=== PATIENT | female | born 1955 | race Two or more races ===

== ENCOUNTER 2020-08-06 22:25 | Inpatient (IN) | payer BC, OTHER ==
[~2020-08-06] VITALS: Ht 165.1 cm; Wt 70.4 kg
[2020-08-06 23:56] LABS: Basophils # (auto) 0.1 10 ^3/uL (0-0.2); Basophils % (auto) 0.8 % (0.0-2.0); Eosinophils # (auto) 0.4 10 ^3/uL (0-0.8); Hematocrit 41.3 % (36.0-46.0); Hemoglobin 14.2 g/dL (12.2-16.2); Lymphocytes # (auto) 2.1 10 ^3/uL (0.4-5.4); Lymphocytes % (auto) 17.4 % (10.0-50.0); Mean Corpuscular Hemoglobin 30.1 pg (28.0-32.0); Mean Corpuscular Hgb Conc. 34.3 g/dL (32.0-36.0); Mean Corpuscular Volume 87.7 fL (80.0-100.0); Monocytes # (auto) 0.8 10 ^3/uL (0-1.3); Monocytes % (auto) 6.8 % (0.0-12.0); Neutrophils # (auto) 8.8 10 ^3/uL (1.6-8.6); Nucleated Red Blood Cells % 0.1 %; Platelet Count (auto) 131 10^3/uL (140-450); Red Blood Cells 4.71 10^6/uL (4.0-5.20); Red Cell Distribution Width 13.1 % (11.8-14.3); White Blood Cell 12.2 10^3/uL (4.4-10.8)
[2020-08-07 00:08] LABS: Urine Bacteria FEW /hpf (None Seen); Urine Blood 2+ /uL (Negative); Urine Hyaline Cast FEW /lpf (0 - 2); Urine Mucus FEW (None Seen); Urine Specific Gravity 1.021 (1.001-1.035); Urine WBC 15 /hpf (0 - 5)
[2020-08-07 00:11] LABS: BUN/Creatinine Ratio 19.7; Calcium 8.9 mg/dL (8.5-10.1); Potassium 3.3 mmol/L (3.5-5.1)
[2020-08-07] MEDS ORDERED: metroNIDAZOLE 500MG/100ML 100 ML IV ONE (08:00)
[2020-08-07] MEDS ORDERED: cefTRIAXone 1GM/50ML D5W 50 ML IV ONE (08:00)
[2020-08-07] MEDS ORDERED: MORPHINE SULFATE 4 MG/ML SYR/VIAL IV ONE (08:00)
[2020-08-07] MEDS ORDERED: ONDANSETRON HCL 4 MG/2 ML VIAL IV ONE (08:00)
[2020-08-07] MEDS ORDERED: SODIUM CHLORIDE 0.9% 1,000 ML IV ONE ×3 (08:00→11:00)
[2020-08-07] MEDS ORDERED: POTASSIUM CHL 20MEQ/100ML 100 ML IV ONE ×2 (10:00→11:00)
[2020-08-07 10:35] LABS: Albumin 3.2 g/dL (3.4-5.0); Calcium 7.5 mg/dL (8.5-10.1); Potassium 3.2 mmol/L (3.5-5.1)
[2020-08-07 10:38] LABS: BUN/Creatinine Ratio 31.3; Bilirubin, Total 0.9 mg/dL (0.2-1.0); Total Protein 6.3 g/dL (6.4-8.2)
[2020-08-07] MEDS ORDERED: MORPHINE SULF INJ 2 MG/ML SYRINGE 1ML IV PRN (11:00)
[2020-08-07] MEDS ORDERED: NITROGLYCERIN 0.4 MG SL TAB SL PRN (11:00)
[2020-08-07 11:42] LABS: Basophils # (auto) 0.1 10 ^3/uL (0-0.2); Basophils % (auto) 0.8 % (0.0-2.0); Eosinophils # (auto) 0.3 10 ^3/uL (0-0.8); Eosinophils % (auto) 3.2 % (0.0-7.0); Hematocrit 34.7 % (36.0-46.0); Hemoglobin 12.1 g/dL (12.2-16.2); Lymphocytes # (auto) 2.5 10 ^3/uL (0.4-5.4); Lymphocytes % (auto) 22.9 % (10.0-50.0); Mean Corpuscular Hemoglobin 30.6 pg (28.0-32.0); Mean Corpuscular Hgb Conc. 34.8 g/dL (32.0-36.0); Monocytes # (auto) 0.9 10 ^3/uL (0-1.3); Monocytes % (auto) 7.9 % (0.0-12.0); Neutrophils # (auto) 7.1 10 ^3/uL (1.6-8.6); Neutrophils % (auto) 65.2 % (37.0-80.0); Nucleated Red Blood Cells % 0.1 %; Platelet Count (auto) 96 10^3/uL (140-450); Red Blood Cells 3.94 10^6/uL (4.0-5.20); Red Cell Distribution Width 13.4 % (11.8-14.3); White Blood Cell 10.8 10^3/uL (4.4-10.8)
[2020-08-07 12:04] LABS: INR 1.05 (0.9-1.15)
[2020-08-07] MEDS ORDERED: OMEP20TA PO (12:55)
[2020-08-07] MEDS ORDERED: ATOR20TA50 PO (12:57)
[2020-08-07] MEDS: levoFLOXacin 500MG 100 ML IV SCH (13:15)
[2020-08-07] MEDS: PANTOPRAZOLE 40 MG/10 ML VIAL INJ IV SCH (13:15)
[2020-08-07] MEDS ORDERED: LOSA100T25 PO (15:39)
[2020-08-07] MEDS ORDERED: FEXO-42 PO (15:39)
[2020-08-07] MEDS: hydrALAZINE HCL 20 MG/ML VL IV PRN (15:58)
[2020-08-07 16:00] VITALS: BP 152/89
[2020-08-07] MEDS: metroNIDAZOLE 500MG/100ML 100 ML IV SCH ×2 (16:00→21:32)
[2020-08-07] MEDS ORDERED: ACETAMINOPHEN 650 mg PER 20.3 mL UD PO PRN (16:15)
[2020-08-07] MEDS ORDERED: ONDANSETRON HCL 4 MG/2 ML VIAL IV PRN (16:15)
[2020-08-07] MEDS ORDERED: ACETAMINOPHEN 325 MG TAB PO PRN (16:30)
[2020-08-07 22:00] VITALS: BP 129/73
[2020-08-08 05:00] VITALS: BP 138/78
[2020-08-08] MEDS: metroNIDAZOLE 500MG/100ML 100 ML IV SCH (05:34)
[2020-08-08 06:41] LABS: Basophils # (auto) 0 10 ^3/uL (0-0.2); Basophils % (auto) 0.4 % (0.0-2.0); Eosinophils # (auto) 0.5 10 ^3/uL (0-0.8); Eosinophils % (auto) 6.4 % (0.0-7.0); Hematocrit 33.9 % (36.0-46.0); Hemoglobin 12.1 g/dL (12.2-16.2); Lymphocytes # (auto) 2.4 10 ^3/uL (0.4-5.4); Lymphocytes % (auto) 33.4 % (10.0-50.0); Mean Corpuscular Hemoglobin 31.2 pg (28.0-32.0); Mean Corpuscular Hgb Conc. 35.6 g/dL (32.0-36.0); Mean Corpuscular Volume 87.7 fL (80.0-100.0); Monocytes # (auto) 0.6 10 ^3/uL (0-1.3); Monocytes % (auto) 7.7 % (0.0-12.0); Neutrophils # (auto) 3.7 10 ^3/uL (1.6-8.6); Neutrophils % (auto) 52.1 % (37.0-80.0); Nucleated Red Blood Cells % 0.1 %; Platelet Count (auto) 80 10^3/uL (140-450); Red Blood Cells 3.87 10^6/uL (4.0-5.20); Red Cell Distribution Width 13.4 % (11.8-14.3); White Blood Cell 7.2 10^3/uL (4.4-10.8)
[2020-08-08 06:48] LABS: Calcium 7.7 mg/dL (8.5-10.1); Potassium 3.4 mmol/L (3.5-5.1)
[2020-08-08 06:51] LABS: BUN/Creatinine Ratio 20.8
[2020-08-08 07:51] VITALS: BP 148/71
[2020-08-08] MEDS ORDERED: LIDOCAINE VISCOUS 2% 15ML UD ONE (08:52)
[2020-08-08] MEDS ORDERED: diphenhdrAMINE HCL 50 MG/1 ML VL ONE (08:53)
[2020-08-08] MEDS ORDERED: fentaNYL CITRATE 100 MCG/2 ML VL ONE (08:53)
[2020-08-08] MEDS ORDERED: MIDAZOLAM HCL 5 MG/ML-1ML VIAL ONE (08:53)
[2020-08-08] MEDS: PANTOPRAZOLE 40 MG/10 ML VIAL INJ IV SCH (09:49)
[2020-08-08] MEDS: levoFLOXacin 500MG 100 ML IV SCH (09:49)
[2020-08-08] MEDS ORDERED: ENOXAPARIN SOD 40 MG/0.4 ML SYRINGE SC SCH (10:00)
[2020-08-08] MEDS ORDERED: GOLYTELY 4L KIT PO ONE (10:30)
[2020-08-08 12:00] VITALS: BP 160/88
[2020-08-08] MEDS: POTASSIUM CHL 20MEQ/100ML 100 ML IV SCH ×2 (12:00→13:16)
[2020-08-08] MEDS: hydrALAZINE HCL 20 MG/ML VL IV PRN (13:38)
[2020-08-08 16:00] VITALS: BP 134/75
[2020-08-08] MEDS ORDERED: POTASSIUM CHL 20 Meq TABLET PO ONE (16:00)
[2020-08-08 17:45] VITALS: BP 160/88
== END 2020-08-08 18:30 | disposition home or self-care (01) | DRG 392 ==
LOC: ER 22:30 → EDSEX 22:30 → TELE 08-07 10:51 → TELE-EAST 08-07 14:50
PROVIDERS: ADMIT Internal Medicine; ATTEND Internal Medicine
DX: K52.9 Noninfective gastroenteritis and colitis, unspecified (principal); Z20.822 Contact with and (suspected) exposure to COVID-19; E87.6 Hypokalemia; I10 Essential (primary) hypertension; K20.90 Esophagitis, unspecified without bleeding; E78.5 Hyperlipidemia, unspecified; F17.210 Nicotine dependence, cigarettes, uncomplicated; K76.0 Fatty (change of) liver, not elsewhere classified; K21.9 Gastro-esophageal reflux disease without esophagitis; Z90.49 Acquired absence of other specified parts of digestive tract
CPT/HCPCS: 36415; 74176; 76705; 78226; 80048; 80053; 81001; 85025; 85610; 86850; 86900; 86901; 87040; 87045; 87086; 87426; 87427; 93005; 96365; 96368; 96375; C9113; G0378; J0696; J1956; J2250; J2405; J3480; J3490

== ENCOUNTER 2022-08-05 19:45 | Emergency (ER) | payer BC ==
[~2022-08-05] VITALS: Ht 165.1 cm; Wt 70.5 kg
[~2022-08-05 19:45] MED LIST: ATOR20TA50 PO; FEXO-42 PO; LOSA100T25 PO; OMEP20TA PO
[2022-08-05 21:12] LABS: Urine Bacteria NONE SEEN /hpf (None Seen); Urine Blood 1+ /uL (Negative); Urine Mucus FEW (None Seen); Urine Specific Gravity 1.016 (1.001-1.035); Urine WBC 3 /hpf (0 - 5)
[2022-08-05 21:22] LABS: Basophils # (auto) 0 10 ^3/uL (0-0.2); Basophils % (auto) 0.4 % (0.0-2.0); Eosinophils # (auto) 0.1 10 ^3/uL (0-0.8); Eosinophils % (auto) 1.6 % (0.0-7.0); Hematocrit 39.8 % (36.0-46.0); Hemoglobin 13.5 g/dL (12.2-16.2); Lymphocytes % (auto) 20.8 % (10.0-50.0); Mean Corpuscular Hemoglobin 30.4 pg (28.0-32.0); Mean Corpuscular Hgb Conc. 33.9 g/dL (32.0-36.0); Mean Corpuscular Volume 89.6 fL (80.0-100.0); Monocytes # (auto) 0.7 10 ^3/uL (0-1.3); Neutrophils # (auto) 6.7 10 ^3/uL (1.6-8.6); Neutrophils % (auto) 70.2 % (37.0-80.0); Nucleated Red Blood Cells % 0.1 %; Red Blood Cells 4.44 10^6/uL (4.0-5.20); White Blood Cell 9.6 10^3/uL (4.4-10.8)
[2022-08-05] MEDS ORDERED: DICYCLOMINE HCL 10 MG CAP PO ONE (21:30)
[2022-08-05 22:00] LABS: Potassium 3.4 mmol/L (3.5-5.1)
[2022-08-05 22:06] LABS: Albumin 4.2 g/dL (3.4-5.0); BUN/Creatinine Ratio 14.7 (10.0-20.0); Bilirubin, Total 0.9 mg/dL (0.2-1.0); Calcium 8.8 mg/dL (8.5-10.1); Total Protein 7.2 g/dL (6.4-8.2)
[2022-08-06 01:25] VITALS: BP 119/60
[2022-08-06] MEDS ORDERED: DICY10CA PO (01:43)
[2022-08-06] MEDS ORDERED: PRED20TA2 PO (01:43)
== END 2022-08-06 02:05 | disposition home or self-care (01) ==
LOC: ER 19:45
DX: K52.9 Noninfective gastroenteritis and colitis, unspecified (principal); R07.89 Other chest pain; I10 Essential (primary) hypertension; E78.5 Hyperlipidemia, unspecified; Z90.49 Acquired absence of other specified parts of digestive tract; Z79.899 Other long term (current) drug therapy
CPT/HCPCS: 36415; 71045; 74176; 80053; 80162; 81001; 83690; 83735; 83880; 84484; 85025; 85610; 85730; 93005; 99285; J0500